=== PATIENT | male | born 1940 | race Hispanic/Latino ===

== ENCOUNTER 2022-05-01 08:27 | Outpatient (CLI) | payer MEDICAID, SELFPAY ==
--- NOTE | ~2022-05-01 | NM_ITS ---
EXAMINATION: NM marcelo stress w perfusion DATE: 05/01/2022 12:17 INDICATION: Dyspnea on exertion. TECHNIQUE: Rest images were obtained following intravenous administration of 10.2 mCi Tc99m tetrofosm in (Myoview). The patient was infused intravenously with Lexiscan (regadenoson). Then, 31.2 mCi Tc99m tetrofosmin (Myoview) was administered intravenously, and stress images were obtained. Data was robin nstructed into short axis and horizontal and vertical long axis SPECT images. Gated SPECT images were also obtained. COMPARISON: None. FINDINGS: There is no definite reversible or fixed perfusion abnormality to suggest ischemia or infar ction. There is no segmental wall motion abnormality. Left ventricular ejection fraction measures > 70%. IMPRESSION: 1. No definite ischemia or infarct. 2. Normal left ventricular ejection fraction measuring >70%. Reviewed, dictated and finalized at location A.
--- NOTE | 2022-05-01 08:50 | ECHO_ITS ---
Patient Info Name: Bunny Willis Age: 82 years : 1940 Gender: Male Ht: 60 in Wt: 137 lbs BSA: 1.64 m2 HR: 68 bpm BP: 184 / 101 mmHg Technical Quality: Good Exam Date: 05/01/2022 9:22 AM Exam Location: [facility] Pulmonary Patient Status: Outpatient Admit Date: 05/01/2022 Staff Ordering Physician: Yordy Burton DO Medical Research Tech: Steven Andres RDCS Attending Provider: Yordy Burton DO Referring Physician: Micheal DANIELLE; Exam Type: CA echo doppler color flow Study Info Indications R06.00 - Dyspnea, unspecified Complete two-dimensional, color flow and Doppler transthoracic echocardiogram is performed. Summary 1. Complete two-dimensional, color flow and Doppler transthoracic echocardiogram is performed. 2. Left ventricular chamber dimension is normal. 3. Left ventricular systolic function is normal, estimated at 60-65%. 4. The left ventricular diastolic function is grade I diastolic dysfunction. 5. E/e' 12 is mildly elevated. Left Ventricle E/e' 12 is mildly elevated. Left ventricular chamber dimension is normal. Left ventricular systolic function is normal, estimated at 60-65%. The left ventricular diastolic function is grade I diastolic dysfunction. Right Ventricle Right ventricular systolic function is normal and with normal TAPSE 1.7 cm. Right ventricular chamber dimension is normal. Left Atria Left atrial chamber dimension is normal. Right Atria Right atrial chamber dimension is normal. Aortic Valve The aortic valve is trileaflet. There is no aortic valve stenosis. There is no aortic valve regurgitation. Pulmonic Valve There is no pulmonic regurgitation. Mitral Valve There is no mitral valve stenosis. There is no mitral valve regurgitation. Tricuspid Valve There is no tricuspid valve regurgitation. Pericardium/Pleural There is no pericardial effusion. Inferior Vena Cava Normal inferior vena cava with >50% collapse upon inspiration consistent with normal right atrial pressure, 5 mmHg. Aorta The aortic root size at the sinus of Valsalva is normal. Left Ventricular Outflow Tract Name Value Normal LVOT 2D LVOT Diameter 2.0 cm LVOT Doppler LVOT Peak Gradient 2 mmHg LVOT Mean Gradient 1 mmHg LVOT VTI 15 cm LVOT VTI/AV VTI Ratio 0.8 LVOT Stroke Volume 49 ml LVOT CO 3.1 l/min LVOT CI 1.9 l/min/m2 Mitral Valve Name Value Normal MV Doppler MV Peak Gradient 4 mmHg MV Mean Gradient 1 mmHg MV Decel Cotton 244 cm/s2 MV PHT 70 ms MV Area (PHT) 3.1
--- NOTE | 2022-05-01 09:10 | EST_ITS ---
Patient Info Name: Bunny Willis Age: 82 years : 1940 Gender: Male Ht: 63 in Wt: 137 lbs BSA: 1.67 m2 Exam Date: 05/01/2022 10:59 AM Exam Location: [facility] Stress Patient Status: Outpatient Admit Date: 05/01/2022 Staff Ordering Physician: Yordy Burton DO Attending Provider: Yordy Burton DO Exercise Technologist: Sowmya Huntley RDCS Exercise Physician: Yordy Burton DO Exam Type: CA stress marcelo w NM Study Info Indications R06.00 - Dyspnea, unspecified A regadenoson stress test was performed. Summary 1. 1. Negative Lexiscan stress test for ischemic ST changes by ECG criteria. 2. 2. Baseline hypertension. 3. 3. Nuclear scan to follow and will be reported separately. Please correlate with it. 4. 4. Patient informed of the above results. Protocol: Lexiscan Stress ECG Details Stage: REST Duration (min): 1 min : 38 sec HR (bpm): 59 SBP (mmHg): 181 DBP (mmHg): 93 Stage: REST Duration (min): 6 min : 52 sec HR (bpm): 60 SBP (mmHg): 181 DBP (mmHg): 93 Stage: STAGE 1 Duration (min): 0 min : 59 sec HR (bpm): 81 SBP (mmHg): 191 DBP (mmHg): 83 Stage: RECOVERY Duration (min): 1 min : 0 sec HR (bpm): 92 SBP (mmHg): 147 DBP (mmHg): 84 Stage: RECOVERY Duration (min): 2 min : 0 sec HR (bpm): 92 SBP (mmHg): 147 DBP (mmHg): 84 Stage: RECOVERY Duration (min): 3 min : 0 sec HR (bpm): 88 SBP (mmHg): 156 DBP (mmHg): 84 Stage: RECOVERY Duration (min): 3 min : 2 sec HR (bpm): 88 SBP (mmHg): 156 DBP (mmHg): 84 Rest HR: 60 bpm Peak HR: 93 bpm Rest Sys BP: 181 mmHg Peak Sys BP: 191 mmHg Max Pred HR: 138 bpm % Max Pred HR: 67 % Target HR: 117 bpm Max RPP: 17,763 bpm*mmHg Termination Reason: Completed protocol Total Time: 1 min : 0 sec Rest Bahena BP: 93 mmHg Peak [place]hena BP: 83 mmHg Total Dose: 0.4 mg Resting ECG Sinus rhythm. Stress ECG No ST changes. Arrhythmias None. Report Signatures
== END 2022-05-01 08:28 | disposition home or self-care (01) ==
LOC: ANHCARD 08:29
PROVIDERS: PCP Physician Assistant; Visit Provider Internal Medicine Cardiovascular Disease
DX: R06.00 Dyspnea, unspecified (principal)
CPT/HCPCS: 78452; 93017; 93306; A9502

== ENCOUNTER 2022-10-02 07:58 | Outpatient (CLI) | payer MEDICAID, SELFPAY ==
[2022-10-02 08:55] LABS: Alanine Aminotransferase 41 U/L (6-50); Albumin Level 4.4 g/dL (3.5-5.1); Alkaline Phosphatase 119 U/L (38-126); Anion Gap 5 mmol/L (8-16); Aspartate Amino Transferase 44 U/L (17-59); Bilirubin,Total 0.6 mg/dL (0.2-1.3); Blood Urea Nitrogen 13 mg/dL (9-20); Calcium 8.9 mg/dL (8.4-10.2); Carbon Dioxide 33 mmol/L (22-30); Chloride 97 mmol/L (98-107); Cholesterol 128 mg/dL (0-200); Estimated Glomerular Filt Rate 42; Glucose 117 mg/dL (65-110); HDL Direct 25 mg/dL; Magnesium 2.3 mg/dL (1.6-2.3); Potassium 4.4 mmol/L (3.4-5.0); Sodium 135 mmol/L (137-145); Triglycerides 220 mg/dL (<150)
[2022-10-02 09:06] LABS: LDL Cholesterol Direct 62 mg/dL
== END 2022-10-02 07:59 | disposition home or self-care (01) ==
LOC: ANHLAB 07:59
PROVIDERS: PCP Physician Assistant; Visit Provider Internal Medicine Cardiovascular Disease
DX: I10 Essential (primary) hypertension (principal)
CPT/HCPCS: 36415; 80053; 80061; 83735

== ENCOUNTER 2023-04-12 08:40 | Emergency (ER) | payer MEDICAID, SELFPAY ==
[2023-04-12 08:56] VITALS: BP 171/82; PULSE 80; RESP 20; TEMP 37.2; O2SAT 98
--- NOTE | 2023-04-12 09:12 | ED.ABDPAIN ---
HPI - Abdominal Pain General Chief Complaint: Abdominal Pain Stated Complaint: stomach pain and chest pain Time Seen by Provider: 04/12/23 09:13 Source: patient, family and diplomatic interpreter Mode of arrival: ambulatory Limitations: no limitations History of Present Illness HPI narrative: 82-year-old male with history of hypertension, GERD presents with complaint epigastric abdominal pain for 8 days. Reports that started mild and is getting progressively worse. Reports that entire abdomen is now bloated. Denies nausea vomiting diarrhea. Last bowel movement was this morning and states that was normal. Denies blood to stool and urine. No urinary symptoms. States normal appetite. Has felt fatigued for the past 4 days. Denies chest pain and shortness of breath. Patient grimacing with pain with movements. Patient is Swedish-speaking, here with his daughter. All systems reviewed and negative except as noted above. Related Data Home Medications Medication Instructions Recorded Confirmed amlodipine 10 mg tablet 10 mg PO DAILY 03/29/22 04/12/23 ferrous sulfate 325 mg (65 mg 325 mg PO DAILY 03/29/22 04/12/23 iron) tablet (FeroSul) Allergies Allergy/AdvReac Type Severity Reaction Status Date / Time No Known Allergies Allergy Verified 04/12/23 10:03 Review of Systems Review of Systems: CONSTITUTIONAL: Denies fever, chills, or sweats. reports fatigue. EYES: Denies visual changes, redness, or discharge. ENT: Denies rhinorrhea, congestion, sore throat, or otalgia. CARDIOVASCULAR: Denies chest pain, palpitations, or edema. RESPIRATORY: Denies cough or dyspnea. GASTROINTESTINAL: Reports abdominal pain, bloating. Denies nausea, vomiting, or diarrhea. GENITOURINARY: Denies dysuria or hematuria. SKIN: Denies rash or itching. MUSCULOSKELETAL: Denies back pain, joint pain, or myalgia. NEUROLOGIC: Denies headache, numbness, or weakness. PSYCHIATRIC: Denies anxiety or depression. All other systems reviewed are negative, except as documented in HPI. [facility] Past Medical History Medical History Anemia GERD (gastroesophageal reflux disease) Hypertension Social History Social History Smoking status: Never smoker Alcohol intake: never Substance use: never Comments At time of signature, agree with nursing past medical, surgical, social and family history. There is no relevant family history pertinent to the presenting complaint. Exam Narrative: GENERAL: This is a well-nourished, well-developed patient, in no apparent distress. HEAD: normocephalic, atraumatic. EYES: PERRL. Sclera clear/white. Vision is grossly intact. EARS: External ears normal NOSE: External nose normal NECK: Neck supple, non-tender without lymphadenopathy, masses or thyromegaly. CARDIOVASCULAR: Regular rate and rhythm without murmurs, gallops, or rubs. RESPIRATORY: Clear to auscultation. Breath sounds equal bilaterally. No wheezes, rales, or rhonchi. GASTROINTESTINAL: Abdomen soft, Generalized tenderness, worse the epigastric region, nondistended. Bowel sounds are active. No hepato-splenomegaly, or palpable masses. No guarding. SKIN: warm, Dry, intact with no suspicious lesions or rash, good texture and turgor. NEURO: awake, alert, and oriented to person, place and time. There were no obvious focal neurologic abnormalities. EXTREMITIES: No joint tenderness, effusion, or edema noted. Course Course Level of Care: Express Care Visit Vital Signs Vital signs: Vital Signs Temperature 37.2 C 04/12/23 08:56 Pulse Rate 80 04/12/23 08:56 Respiratory Rate 20 04/12/23 08:56 Blood Pressure 171/82 H 04/12/23 08:56 Pulse Oximetry 98 04/12/23 08:56 Oxygen Delivery Room Air 04/12/23 08:56 Temperature 37.2 C 04/12/23 08:56 Pulse Rate 80 04/12/23 08:56 Respiratory Rate 20 04/12/23 08:56 Blood Press
--- NOTE | 2023-04-12 12:45 | ECG_ITS ---
Measurements Intervals [place] Rate: 72 P: 44 NM: 194 QRS: -13 QRSD: 95 T: -4 QT: 364 QTc: 399 Interpretive Statements SINUS RHYTHM BORDERLINE T WAVE ABNORMALITY- INFERIOR LEADS BASELINE ARTIFACT- I, III, AVL BORDERLINE ECG NO PREVIOUS ECG AVAILABLE FOR COMPARISON Electronically Signed On 04-12-2023 13:16:18 CDT by Yordy Burton D.O.
== END 2023-04-12 09:40 | disposition short-term general hospital (02) ==
PROVIDERS: Emergency Provider Nurse Practitioner Family; PCP Physician Assistant
DX: R10.13 Epigastric pain (principal); R10.84 Generalized abdominal pain; D64.9 Anemia, unspecified; I10 Essential (primary) hypertension; K21.9 Gastro-esophageal reflux disease without esophagitis
CPT/HCPCS: 93005; 99213; G0463

== ENCOUNTER 2023-04-12 10:03 | Observation (INO) | payer MEDICAID, SELFPAY ==
[2023-04-12] VITALS (16 sets, daily range): BP systolic 90–173; BP diastolic 47–90; PULSE 67–85; RESP 12–27; TEMP 36.1–37.1; O2SAT 95–100; BMI 25.9
--- NOTE | ~2023-04-12 | CT_ITS ---
EXAMINATION: CT abdomen pelvis w con INDICATION: Abdominal pain TECHNIQUE: Computed tomographic images of the abdomen and pelvis were obtained after the administrati on of 100 cc of Omnipaque 350 intravenous contrast. The dose-length product (DLP) was 351.41 mGy-cm. Automated exposure control and iterative reconstruction technique were employed. COMPARISON: None available FINDINGS: Respiratory motion artifact slightly limits the examination. Minimal dependent atelectasis is present in the lung bases. The heart size is normal. There is a moderate-sized hiatal hernia. Ther e is circumferential wall thickening of the visualized distal esophagus. The spleen, pancreas, and ad renal glands are normal. Cysts of the kidneys measure up to 3.7 cm on the left. No pathologically enl arged abdominal or pelvic lymph nodes are identified. No free intraperitoneal gas or evidence of risa l obstruction. There is calcified atherosclerosis of the aorta and many of the other arteries. There are bilateral inguinal hernias containing fat. There is moderate lumbar spondylosis. The appendix is normal. IMPRESSION: 1. Moderate-sized sliding hiatal hernia. Circumferential wall thickening of the visualized distal eso phagus may reflect esophagitis. Reviewed, dictated and finalized at location B. IMPRESSION: 1. Moderate-sized sliding hiatal hernia. Circumferential wall thickening of the visualized distal esophagus may reflect esophagitis.
--- NOTE | ~2023-04-12 | CT_ITS ---
EXAMINATION: CT diagnostic chest w con DATE: 04/12/2023 17:31 INDICATION: Esophageal ulcer suspicious for cancer TECHNIQUE: Computed tomography (CT) of the chest was performed without intravenous contrast. Addition al 3D reconstructions utilizing coronal maximum intensity projection (MIP) were performed. Automated exposure control and iterative reconstruction technique were employed. The dose-length product was 26 7.86 mGy-cm. COMPARISON: None FINDINGS: Respiratory motion the lungs which mildly limits evaluation of fine pulmonary parenchymal detail. Mil d right apical pleural-parenchymal scarring. Mild discoid atelectasis in the posterior right lower lo be. Additional compressive atelectasis in the bilateral lower lobes along side a moderate-sized slidi ng-type hiatal hernia. Small pneumatocele in the right middle lobe. Small bilateral intrafissural lym ph nodes the largest on the right measuring 5 mm. No other suspicious pulmonary nodules, pneumonia, p ulmonary edema or pleural effusion. Heart size is normal. No pericardial effusion. There is prominent wall thickening in the distal esophagus with small amount of adjacent inflammatory stranding which c ould be due to esophagitis or malignancy. The adjacent stranding is likely related to the reported ul ceration however there is no pneumomediastinum to suggest full-thickness perforation there are few sc attered normal-sized mediastinal lymph nodes. Small region of cortical scarring at the lower pole of the right kidney. 2.9 cm left renal cyst with a couple additional subcentimeter left renal cyst. Mild thoracic dextrocurvature with mild spondylosis. IMPRESSION: 1. Prominent wall thickening at the distal esophagus with some surrounding periesophageal stranding c onsistent with reported history of ulceration which could be related to either gastritis or malignanc y. No evident metastatic disease. 2. Moderate-sized sliding-type hiatal hernia. Reviewed, dictated and finalized at location A. IMPRESSION: 1. Prominent wall thickening at the distal esophagus with some surrounding nolan esophageal stranding consistent with reported history of ulceration which could be related to either gastritis or malignancy. No evident metastatic disease. 2. Moderate-sized sliding-type hiatal hernia.
[2023-04-12] MEDS: ONDANSETRON INJ 4 MG/2 ML VIAL IV PUSH (11:15)
[2023-04-12] MEDS: FAMOTIDINE 20 MG/2 ML VIAL IV PUSH (11:15)
[2023-04-12 11:35] LABS: Appearance Urine Clear (Clear); Bilirubin Urine Negative (Negative); Blood Urine Negative (Negative); Color Urine Yellow (Yellow); Glucose Urine UA Negative (Negative); Ketones Urine Negative (Negative); Leukocyte Esterase Ur Negative LEU/UL (Negative); Nitrate Urine Negative (Negative); Protein Urine Negative (Negative); Specific Grav Ur 1.018 (1.001-1.035)
[2023-04-12 11:42] LABS: Add Urine Microscopic? NO
[2023-04-12 11:50] LABS: Basophils Percent Auto 0.3 % (0.2-1.2); Eosinophils Absolute Auto 0.1 K/mm3 (0-0.3); Eosinophils Percent Auto 0.9 % (0-4.4); Hematocrit 21.7 % (42.0-52.0); Immature Granulocyte Absolute 0.07 K/mm3 (0.00-0.031); Immature Granulocyte Percent A 0.5 % (0-0.5); Lymphocytes Percent Auto 14.9 % (18.3-44.2); Mean Corpuscular HGB Conc 32.3 g/dl (32-36); Mean Corpuscular Hemoglobin 30.4 pg (26-34); Mean Corpuscular Volume 94.3 fl (80-100); Mean Platelet Volume 8.9 fl (7.4-10.4); Monocytes Absolute Auto 1.2 K/mm3 (0.1-0.6); Monocytes Percent Auto 9.5 % (2.6-8.5); Neutrophils Absolute Auto 9.4 K/mm3 (1.3-6.7); Neutrophils Percent Auto 73.9 % (45.5-73.1); Platelet Count Result 319 k/mm3 (150-375); Red Cell Distribution Width 14.4 % (11.5-14.5); White Blood Count 12.8 K/mm3 (4.5-10.0)
[2023-04-12 12:19] LABS: Alanine Aminotransferase 20 U/L (6-50); Albumin Level 3.3 g/dL (3.5-5.1); Alkaline Phosphatase 85 U/L (38-126); Anion Gap 7 mmol/L (8-16); Aspartate Amino Transferase 27 U/L (17-59); Bilirubin,Total 0.3 mg/dL (0.2-1.3); Blood Urea Nitrogen 16 mg/dL (9-20); Calcium 7.9 mg/dL (8.4-10.2); Carbon Dioxide 23 mmol/L (22-30); Chloride 105 mmol/L (98-107); Estimated CRCL calculation 54 ml/min; Estimated Glomerular Filt Rate > 60; Glucose 115 mg/dL (65-110); Lipase 55 U/L (23-300); Potassium 4.1 mmol/L (3.4-5.0); Sodium 135 mmol/L (137-145)
--- NOTE | 2023-04-12 13:07 | ED.ABDPAIN ---
HPI - Abdominal Pain General Chief Complaint: Abdominal Pain Stated Complaint: abdominal pain and bloating Time Seen by Provider: 04/12/23 10:44 History of Present Illness HPI narrative: 82-year-old male presents today with complaints of 8 days of epigastric pain. Patient is primarily Vietnamese-speaking stock trader used for assessment. Patient endorses belching and dark stools. Patient states has a history of high blood pressure and anemia. Per the daughter he was supposed to be taking some kind of medication for the anemia but he ran out. No previous labs available. Patient denies any shortness of breath, dizziness, lightheadedness but does endorse some chest pain with the abdominal pain when it occurs. Related Data Allergies Allergy/AdvReac Type Severity Reaction Status Date / Time No Known Allergies Allergy Verified 04/12/23 15:39 Review of Systems Review of Systems: All systems reviewed & are unremarkable except as noted in HPI and below PMFSH Past Medical History Medical History Anemia GERD (gastroesophageal reflux disease) Hypertension Social History Social History Smoking status: Never smoker Alcohol intake: never Substance use: never Lack of Transportation: No Lack of Food: Never True Current Housing: I Have Housing Concerned About Future Housing: No Difficulty Paying Gas/Electric Bills: No Difficulty Paying for Meds: No Currently Unemployed: No Education: Grade School Difficulty w/ Childcare or Family Care: No Spiritual care concerns: No Exam Const: General: cooperative, healthy appearing, comfortable, no acute distress and well developed Orientation/consciousness: patient oriented x3 HENMT: Head: normal to inspection Eyes: General: appearance normal, both eyes and all related structures Resp: Effort & Inspection: normal respiratory effort and able to speak in complete sentences Auscultation: clear to auscultation bilaterally Cardio: Rate: regular rate Rhythm: regular rhythm Heart sounds: S1 normal heart sound present and S2 normal heart sound present GI: Inspection: normal to inspection GI Palp: Yes abdominal tenderness (Epigastric), Yes Soft to palpation and Yes No hepatosplenomegaly present Percussion: Yes normal to percussion Rectal Exam: heme positive stool Neuro: General: patient oriented x3 Course Course Emergency Course: Patient doing well during his course. Mortgage Or Loan Underwriter used to explain low hemoglobin. Used to explain need for blood transfusion. Patient and family agreed for blood transfusion. They are aware patient to be admitted for further evaluation. All are in agreement at this time. Consultations Consultation #1: Dr. Olmedo called for consult. Except consult aware of hemoglobin of 7 and guaiac positive stool. Date: 04/12/23 Time: 13:50 Vital Signs Vital signs: Vital Signs Temperature 97.4 F L 04/12/23 10:03 Pulse Rate 79 04/12/23 10:03 Respiratory Rate 14 04/12/23 10:03 Blood Pressure 172/77 H 04/12/23 10:03 Pulse Oximetry 99 04/12/23 10:03 Oxygen Delivery Room Air 04/12/23 10:03 Temperature 98.5 F 04/12/23 16:58 Pulse Rate 77 04/12/23 18:00 Respiratory Rate 12 04/12/23 16:58 Blood Pressure 156/80 H 04/12/23 16:58 Pulse Oximetry 99 04/12/23 16:58 Oxygen Delivery Room Air 04/12/23 16:38 MDM - Abdominal Pain MDM Narrative Medical decision making narrative: 82-year-old male HPI as noted. Differentials as below. Work-up to include CBC, CMP, EKG, troponin, CT of the abdomen. CBC with findings of a hemoglobin of 7.0, white count 12.8, CMP without concerning findings but a sodium of 135, glucose 115 calcium 7.9. Urine without signs of infection. EKG shows sinus rhythm. Troponin negative. stool guaiac positive. GI consulted. Hospitalist consulted. Will transfuse 1 unit of blood
[2023-04-12 13:19] LABS: INR 1.1; Prothrombin Time 14.3 Seconds (11.1-14.7)
--- NOTE | 2023-04-12 13:24 | ECG_ITS ---
Measurements Intervals [place] Rate: 81 P: 44 WV: 188 QRS: 1 QRSD: 86 T: 4 QT: 362 QTc: 423 Interpretive Statements SINUS RHYTHM BORDERLINE T WAVE ABNORMALITY- INFERIOR LEADS BASELINE ARTIFACT- III, AVL, AVF BORDERLINE ECG COMPARED TO ECG 04/12/2023 09:44:55 NO SIGNIFICANT CHANGES Electronically Signed On 04-12-2023 13:52:08 CDT by Yordy Burton D.O.
[2023-04-12 14:13] LABS: Troponin I < 0.012 ng/mL (0.000-0.034)
[2023-04-12] MEDS: SODIUM CHLORIDE 0.9% IV 250 ML 30 ML IV CONT (15:10)
[2023-04-12] MEDS: PANTOPRAZOLE SODIUM IV 40 MG VIAL 80 MG IV PUSH (15:10)
[2023-04-12] MEDS: TUBING, BLOOD PLUM PUMP TUBING 1 EACH XX (15:12)
[2023-04-12] MEDS: LACTATED RINGERS 1,000 ML 50 ML IV CONT (15:12)
--- NOTE | 2023-04-12 15:41 | PM.IMHP ---
H&P: HPI History of Present Illness Date/Time: 04/12/23 14:30 Chief Complaint: abdominal pain Narrative: This is an 82-year-old male patient with past history of hypertension, GERD and anemia who was admitted for significant anemia with Hemoccult-positive stool and imaging findings esophagitis. Patient found to have hemoglobin of 7.0 unknown prior results. Patient reports that he has had epigastric pain radiating up into his chest a comes off and on but has been worse for the last 8 days. Patient is supposed to be taking iron but has not been taking this. Family is present as patient only speaks Serbian in defers to family even when aerial photogrammetrist is used. Gastroenterology was consulted by the emergency department provider and patient was taken for EGD. EGD shows Barretts esophagus and large ulceration with stigmata of recent bleeding concerning for Malignancy. Patient denies alcohol abuse or smoking. Patient received 80 mg IV Protonix in the emergency department and is now on Protonix 40 mg IV twice daily. Review of Systems Review of Systems: All systems reviewed & are unremarkable except as noted in HPI and below ROS unobtainable: Yes other [facility] Past Medical History Medical History Anemia GERD (gastroesophageal reflux disease) Hypertension Social History Social History Smoking status: Never smoker Alcohol intake: never Substance use: never Lack of Transportation: No Lack of Food: Never True Current Housing: I Have Housing Concerned About Future Housing: No Difficulty Paying Gas/Electric Bills: No Difficulty Paying for Meds: No Currently Unemployed: No Education: Grade School Difficulty w/ Childcare or Family Care: No Spiritual care concerns: No Meds Home Medications and Allergies Home Medications Medication Instructions Recorded Confirmed Type carvedilol 25 mg tablet 25 mg PO Q12H #180 tabs 09/27/22 04/12/23 Rx Allergies Allergy/AdvReac Type Severity Reaction Status Date / Time No Known Allergies Allergy Verified 04/12/23 15:39 Vital Signs Vital Signs - 24 hr 04/12/23 10:03 04/12/23 13:31 04/12/23 15:02 Temperature 36.3 C L 36.9 C Pulse Rate 79 82 80 Respiratory Rate 14 16 26 H Blood Pressure 172/77 H 173/90 H 156/88 H Pulse Oximetry 99 97 96 Oxygen Delivery Room Air 04/12/23 15:13 04/12/23 15:21 Temperature 37.1 C Pulse Rate 80 80 Respiratory Rate 24 H 24 H Blood Pressure 156/88 H 154/78 H Pulse Oximetry 96 95 Oxygen Delivery Exam Narrative: GENERAL: Generally well appearing, alert and oriented, in no apparent distress. He primarily defers to family to answer for him even when aerial photogrammetrist is used. HEENT: Pupils are equally round and briskly reactive to light. Extraocular muscles are intact. Oral mucous membranes are moist without lesions. NECK: The patient has no noted JVD. No adenopathy is appreciated. CHEST/LUNGS: Lungs are clear bilaterally without rhonchi, rales, or wheezes. There is no subcutaneous air appreciated. There is no tenderness to the chest wall. HEART: The patient has a regular rate and rhythm. No murmurs, rubs, or gallops are appreciated. Distal pulses are 2+. ABDOMEN: The patient's abdomen is soft, Nondistended, epigastric tenderness is noted. Bowel sounds present. No peritoneal signs. EXTREMITIES: The patient has no peripheral edema. There is no focal long bone tenderness or deformity. SKIN: The patient's skin is warm and dry, without rashes or lesions. PSYCHIATRIC: The patient has normal mental status and has an appropriate affect. NEUROLOGIC: There are no gross deficits to the cranial nerves. Patient ambulates with steady gait. H&P: Results Labs Labs: Short CBC 04/12/23 Range/Units 11:44 WBC 12.8 H (4.5-10.0) K/mm3 Hgb 7.0 L (14.0-18.0) g/dL Hct 21.7 L (42.0-52.0) % Plt Count 319 (1
--- NOTE | 2023-04-12 15:43 | WPDANESEPPF ---
Anes - Initial Pre Proc Eval Procedure: Operation Date: 04/12/23 15:45 Proposed Procedures p Esophagogastroduodenoscopy EGD - Jalen Olmedo MD Date/Time: 04/12/23 15:43 Surgeon: Darren Nava MD Pre Op Diagnosis: Rectal Bleeding/Anemia Patient Data Age: 82 Gender: M Height: 1.57 m Weight: 54 kg Last Vital Signs Temp 37.1 C 04/12/23 15:21 Pulse 80 04/12/23 15:21 Resp 24 H 04/12/23 15:21 BP 154/78 H 04/12/23 15:21 Pulse Ox 95 04/12/23 15:21 O2 Del Method Room Air 04/12/23 10:03 Allergies Allergy/AdvReac Type Severity Reaction Status Date / Time No Known Allergies Allergy Verified 04/12/23 15:39 Home Medications Medication Instructions Recorded Confirmed Type carvedilol 25 mg tablet 25 mg PO Q12H #180 tabs 09/27/22 04/12/23 Rx Laboratory Tests 04/12/23 04/12/23 04/12/23 11:05 11:44 11:55 WBC 12.8 H K/mm3 (4.5-10.0) RBC 2.30 L M/mm3 (4.6-6.20) Hgb 7.0 L g/dL (14.0-18.0) Hct 21.7 L % (42.0-52.0) MCV 94.3 fl (80-100) MCH 30.4 pg (26-34) MCHC 32.3 g/dl (32-36) RDW 14.4 % (11.5-14.5) Plt Count 319 k/mm3 (150-375) MPV 8.9 fl (7.4-10.4) Immature Gran % (Auto) 0.5 % (0-0.5) Neut % (Auto) 73.9 H % (45.5-73.1) Lymph % (Auto) 14.9 L % (18.3-44.2) [place] % (Auto) 9.5 H % (2.6-8.5) Eos % (Auto) 0.9 % (0-4.4) Baso % (Auto) 0.3 % (0.2-1.2) Lymph # (Auto) 1.90 K/mm3 (0.9-3.2) [place] # (Auto) 1.2 H K/mm3 (0.1-0.6) Eos # (Auto) 0.1 K/mm3 (0-0.3) Baso # (Auto) 0.0 K/mm3 (0.0-0.1) Abs Immat Gran (auto) 0.07 H K/mm3 (0.00-0.031) Absolute Neuts (auto) 9.4 H K/mm3 (1.3-6.7) Absolute Nucleated RBC 0.0 K/mm3 (0.0-0.012) Nucleated RBC % 0.0 % (0.0-0.2) PT 14.3 Seconds (11.1-14.7) INR 1.1 Sodium 135 L mmol/L (137-145) Potassium 4.1 mmol/L (3.4-5.0) Chloride 105 mmol/L (98-107) Carbon Dioxide 23 mmol/L (22-30) Anion Gap 7 L mmol/L (8-16) BUN 16 mg/dL (9-20) Creatinine 0.70 mg/dL (0.7-1.3) Estim Creat Clear Calc 54 ml/min Estimated GFR > 60 (59 - ) Glucose 115 H mg/dL (65-110) Calcium 7.9 L mg/dL (8.4-10.2) Total Bilirubin 0.3 mg/dL (0.2-1.3) AST 27 U/L (17-59) ALT 20 U/L (6-50) Alkaline Phosphatase 85 U/L (38-126) Troponin I Total Protein 6.0 L g/dL (6.3-8.2) Albumin 3.3 L g/dL (3.5-5.1) Lipase 55 U/L (23-300) Urine Color Yellow (Yellow) Urine Appearance Clear (Clear) Urine pH 6.0 (5.0-9.0) Ur Specific [place] 1.018 (1.001-1.035) Urine Protein Negative mg/dL (Negative) Urine Glucose (UA) Negative mg/dL (Negative) Urine Ketones Negative mg/dL (Negative) Ur Blood (Man) Negative (Negative) Urine Nitrate Negative (Negative) Urine Bilirubin Negative (Negative) Urine Urobilinogen 1.0 mg/dL (<2.0) Leukocyte Esterase Rfl Negative HEIDI/UL (Negative) Blood Type Antibody Screen Crossmatch 04/12/23 13:45 WBC RBC Hgb Hct MCV MCH MCHC RDW Plt Count MPV Immature Gran % (Auto) Neut % (Auto) Lymph % (Auto) [place] % (Auto) Eos % (Auto) Baso % (Auto) Lymph # (Auto) [place] # (Auto) Eos # (Auto) Baso # (Auto) Abs Immat Gran (auto) Absolute Neuts (auto) Absolute Nucleated RBC Nucleated RBC % PT INR Sodium Potassium
[2023-04-12] MEDS: LACTATED RINGERS 1,000 ML 150 ML IV CONT (15:46)
--- NOTE | 2023-04-12 16:20 | WPDGICN ---
Assessment and Plan Assessment and plan (1) Melena: Code(s): K92.1 - Melena Status: Acute Assessment and Plan: Patient with black melenic stools confirmed to be heme-positive along with a low blood count. Patient also has mid upper abdominal burning pain. Suspicious for upper GI blood loss. Plan to transfuse to a stable hemoglobin. Cover patient with pantoprazole. An EGD will be performed. (2) Abdominal pain: Code(s): R10.9 - Unspecified abdominal pain Status: Acute (3) Anemia due to blood loss: Code(s): D50.0 - Iron deficiency anemia secondary to blood loss (chronic) Status: Acute GI Consult Note Consult date/time: 04/12/23 16:20 Reason for consult: Melena and blood-loss anemia HPI: Bunny Willis is a 82 year old male present to the ER today with complaints of abdominal pain. Patient speaks Mauritian only. History is obtained in the assistance of his son. Patient is noticed upper abdominal burning pain has been present for several days. Upon presenting to the emergency room patient was noted to have black melenic stools. This was confirmed to be Hemoccult positive. Laboratory testing reveals a decline in hemoglobin. Patient is not been on any specific treatment for this. CT scan in the emergency room suggests some thickening to the esophagus. Family history noncontributory. Review of Systems Review of Systems: Review of systems noncontributory. [facility] Past Medical History Medical History Anemia GERD (gastroesophageal reflux disease) Hypertension Social History Social History Smoking status: Never smoker Alcohol intake: never Substance use: never Meds Home Medications and Allergies Home Medications Medication Instructions Recorded Confirmed Type carvedilol 25 mg tablet 25 mg PO Q12H #180 tabs 09/27/22 04/12/23 Rx Allergies Allergy/AdvReac Type Severity Reaction Status Date / Time No Known Allergies Allergy Verified 04/12/23 15:39 Vital Signs Vital Signs - 24 hr 04/12/23 10:03 04/12/23 13:31 04/12/23 15:02 Temperature 97.4 F L 98.4 F Pulse Rate 79 82 80 Respiratory Rate 14 16 26 H Blood Pressure 172/77 H 173/90 H 156/88 H Pulse Oximetry 99 97 96 Oxygen Delivery Room Air 04/12/23 15:13 04/12/23 15:21 04/12/23 15:40 Temperature 98.7 F 97.6 F Pulse Rate 80 80 76 Respiratory Rate 24 H 24 H 20 Blood Pressure 156/88 H 154/78 H 165/70 H Pulse Oximetry 96 95 97 Oxygen Delivery Room Air Exam Narrative: Physical exam reveals patient to be alert. Vital signs stable. HEENT exam is unremarkable. Patient is anicteric. Lungs are clear to auscultation and percussion. Heart is without murmur. Abdomen bowel sounds are present soft nontender with no organomegaly. Stools reported be Hemoccult positive. Results Labs 04/12/23 11:44 04/12/23 11:55 Labs: Short CBC 04/12/23 Range/Units 11:44 WBC 12.8 H (4.5-10.0) K/mm3 Hgb 7.0 L (14.0-18.0) g/dL Hct 21.7 L (42.0-52.0) % Plt Count 319 (150-375) k/mm3 BMP 04/12/23 11:55 Sodium 135 L Potassium 4.1 Chloride 105 Carbon Dioxide 23 BUN 16 Creatinine 0.70 Glucose 115 H Calcium 7.9 L Cardiac Enzymes 04/12/23 Range/Units 13:45 Troponin I < 0.012 (0.000-0.034) ng/mL Liver Function 04/12/23 Range/Units 11:55 Total Bilirubin 0.3 (0.2-1.3) mg/dL AST 27 (17-59) U/L ALT 20 (6-50) U/L Alkaline Phosphatase 85 (38-126) U/L Albumin 3.3 L (3.5-5.1) g/dL Urine 04/12/23 Range/Units 11:05 Urine Color Yellow (Yellow) Urine Appearance Clear (Clear) Urine pH 6.0 (5.0-9.0) Ur Specific [place] 1.018 (1.001-1.035) Urine Protein Negative (Negative) mg/dL Urine Glucose (UA) Negative (Negative) mg/dL [facility] Consult Billing
--- NOTE | 2023-04-12 19:22 | ADMGEN ---
This patient, Bunny Willis, was admitted to IMU Room 207-01 at 1645. Patient/family oriented to hospital policies and general routines including ID bracelet, bed and alarms, visiting hours, pain management, procedures, bathroom and other care routines, personal items, smoking policy, room service/diet, and visiting hours. Information on how to activate the Rapid Response Team has been discussed. Patient/Family are encouraged to report perceived risks to care and to ask questions if they do not understand what they are told or what they should do.
[2023-04-12] MEDS: PANTOPRAZOLE SODIUM IV 40 MG VIAL IV PUSH (20:28)
[2023-04-12 22:08] LABS: Hematocrit 26.3 % (42.0-52.0); Hemoglobin 8.7 g/dL (14.0-18.0); Mean Corpuscular HGB Conc 33.1 g/dl (32-36); Mean Corpuscular Hemoglobin 30.7 pg (26-34); Mean Corpuscular Volume 92.9 fl (80-100); Mean Platelet Volume 9.1 fl (7.4-10.4); Platelet Count Result 299 k/mm3 (150-375); Red Blood Count 2.83 M/mm3 (4.6-6.20); Red Cell Distribution Width 14.3 % (11.5-14.5); White Blood Count 11.8 K/mm3 (4.5-10.0)
[2023-04-13] VITALS (16 sets, daily range): BP systolic 109–154; BP diastolic 49–70; PULSE 69–90; RESP 14–24; TEMP 36.1–37.2; O2SAT 91–98
[2023-04-13] MEDS: carvediloL 25 MG TABLET PO ×3 (00:52→21:04)
[2023-04-13 04:23] LABS: Basophils Percent Auto 0.2 % (0.2-1.2); Eosinophils Absolute Auto 0.1 K/mm3 (0-0.3); Eosinophils Percent Auto 1.3 % (0-4.4); Hematocrit 24.5 % (42.0-52.0); Hemoglobin 8.1 g/dL (14.0-18.0); Immature Granulocyte Absolute 0.05 K/mm3 (0.00-0.031); Immature Granulocyte Percent A 0.5 % (0-0.5); Lymphocytes Absolute Auto 1.46 K/mm3 (0.9-3.2); Lymphocytes Percent Auto 15.5 % (18.3-44.2); Mean Corpuscular HGB Conc 33.1 g/dl (32-36); Mean Corpuscular Hemoglobin 31.3 pg (26-34); Mean Corpuscular Volume 94.6 fl (80-100); Mean Platelet Volume 9.2 fl (7.4-10.4); Monocytes Percent Auto 10.1 % (2.6-8.5); Neutrophils Absolute Auto 6.8 K/mm3 (1.3-6.7); Neutrophils Percent Auto 72.4 % (45.5-73.1); Platelet Count Result 280 k/mm3 (150-375); Red Blood Count 2.59 M/mm3 (4.6-6.20); Red Cell Distribution Width 14.2 % (11.5-14.5); White Blood Count 9.4 K/mm3 (4.5-10.0)
[2023-04-13 04:32] LABS: Alanine Aminotransferase 19 U/L (6-50); Albumin Level 2.9 g/dL (3.5-5.1); Alkaline Phosphatase 79 U/L (38-126); Anion Gap 8 mmol/L (8-16); Aspartate Amino Transferase 28 U/L (17-59); Bilirubin,Total 0.6 mg/dL (0.2-1.3); Blood Urea Nitrogen 12 mg/dL (9-20); Calcium 7.7 mg/dL (8.4-10.2); Carbon Dioxide 24 mmol/L (22-30); Chloride 106 mmol/L (98-107); Estimated CRCL calculation 43 ml/min; Estimated Glomerular Filt Rate > 60; Glucose 111 mg/dL (65-110); Potassium 3.9 mmol/L (3.4-5.0); Sodium 138 mmol/L (137-145)
[2023-04-13] MEDS: PANTOPRAZOLE SODIUM IV 40 MG VIAL IV PUSH ×2 (09:57→21:08)
--- NOTE | 2023-04-13 10:09 | WPDGIPROGNO ---
Progress Note: A&P Assessment and Plan (1) Esophageal ulcer with bleeding: Code(s): K22.11 - Ulcer of esophagus with bleeding Status: Acute Assessment and Plan: Esophageal ulcer was found to be source of upper GI blood loss. This is somewhat suspicious for a possible malignancy. Histology pending. CT scan confirms lesion in the esophagus no obvious metastatic disease. Will continue pantoprazole and advance to oral medications when diet tolerated. If malignancy confirmed oncology consultation is advised. Workup in progress to see if surgical resection is feasible. 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 He had mild stricturing in the proximal esophagus which was dilated. Long-term PPI use advised. This is risk factor for cancer. This makes large ulceration very suspicious for underlying malignancy. (3) Hiatal hernia: Code(s): K44.9 - Diaphragmatic hernia without obstruction or gangrene Status: Acute Subjective Date/time seen: 04/13/23 10:09 Interval history: Patient alert comfortable this morning. No significant he has additional bleeding noted. Abdominal pain appears to have improved. Currently tolerating liquid diet without difficulty. Review of Systems Review of Systems: Review of systems noncontributory. Exam Narrative: Physical exam reveals patient be alert comfortable at rest. Vital signs stable. HEENT exam unremarkable. Patient anicteric. Lungs are clear. Heart without murmur. Abdomen bowel sounds present soft nontender with no obvious organomegaly. Objective Data Vital Signs Vital Signs: Vital Signs - 24 hr 04/12/23 13:31 04/12/23 15:02 04/12/23 15:13 Temperature 98.4 F Pulse Rate 82 80 80 Respiratory Rate 16 26 H 24 H Blood Pressure 173/90 H 156/88 H 156/88 H Pulse Oximetry 97 96 96 Oxygen Delivery 04/12/23 15:21 04/12/23 15:40 04/12/23 16:18 Temperature 98.7 F 97.6 F Pulse Rate 80 76 76 Respiratory Rate 24 H 20 26 H Blood Pressure 154/78 H 165/70 H 92/47 L Pulse Oximetry 95 97 100 Oxygen Delivery Room Air Room Air 04/12/23 16:28 04/12/23 16:38 04/12/23 16:58 Temperature 98.5 F Pulse Rate 75 67 75 Respiratory Rate 27 H 23 H 12 Blood Pressure 90/50 L 118/60 156/80 H Pulse Oximetry 98 96 99 Oxygen Delivery Room Air Room Air 04/12/23 18:00 04/12/23 16:45 04/12/23 20:00 Temperature 98.6 F 97 F L Pulse Rate 77 82 77 Respiratory Rate 20 20 Blood Pressure 158/72 H 155/74 H Pulse Oximetry 99 96 Oxygen Delivery 04/12/23 20:00 04/12/23 20:00 04/12/23 22:00 Temperature Pulse Rate 77 76 82 Respiratory Rate 20 Blood Pressure Pulse Oximetry 96 Oxygen Delivery Room Air 04/12/23 23:42 04/12/23 23:53 04/13/23 00:00 Temperature 97 F L Pulse Rate 85 85 82 Respiratory Rate 16 16 Blood Pressure 136/65 Pulse Oximetry 96 96 Oxygen Delivery Room Air 04/13/23 00:52 04/13/23 02:00 04/13/23 04:00 Temperature 97.4 F L Pulse Rate 81 75 76 Respiratory Rate 16 Blood Pressure 109/57 L Pulse Oximetry 97 Oxygen Delivery 04/13/23 04:00 04/13/23 04:00 04/13/23 05:05 Temperature Pulse Rate 76 72 78 Respiratory Rate 16 Blood Pressure Pulse Oximetry 97 Oxygen Delivery Room Air 04/13/23 07:59 Temperature 96.9 F L Pulse Rate 76 Respiratory Rate 14 Blood Pressure 129/57 L Pulse Oximetry 98 Oxygen Delivery Intake/Output Intake/Output: Intake & Output 04/10/23 04/11/23 04/12/23 04/13/23 23:59 23:59 23:59 23:59 Intake Total 500 420 Output Total 460 480 Balance 40 -60 Meds/Results Medications: Active Medications Generic Name Dose Route Start Last Admin Trade Name Freq PRN Reason Stop Dose Admin Acetaminophen 650 mg 04/12/23 22:58 Acetaminophen 3
--- NOTE | 2023-04-13 11:30 | PM.IMPN ---
Progress Note: A&P Assessment and Plan (1) Esophageal ulcer with bleeding: Code(s): K22.11 - Ulcer of esophagus with bleeding Status: Acute Assessment and Plan: Pollock's esophagitis noted on EGD with large ulcer with stigmata of recent bleeding. Biopsies obtained. Stricture dilated. Patient treated with pantoprazole and 1 unit PRBC transfused. 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 Chronic anemia reported but unknown prior values. Esophageal ulcer with bleeding noted on EGD. Repeat hemoglobin 8.7 after transfusion. Monitor (3) Hypertension: Code(s): I10 - Essential (primary) hypertension Status: Acute Assessment and Plan: hypertension noted without extreme measurements, continue Coreg (4) Esophageal stricture: Code(s): K22.2 - Esophageal obstruction Status: Acute Assessment and Plan: esophageal stricture noted during EGD and was subsequently dilated. Plan diet: Clear liquid advanced diet as tolerated VT prophylaxis: SCDs GI prophylaxis: Pantoprazole 40 mg IV twice daily code status: Full code Subjective Date/time seen: 04/13/23 11:30 Interval history: 82-year-old male patient with past history of hypertension, GERD and anemia who was admitted for significant anemia with Hemoccult-positive stool and imaging findings esophagitis found to have Pollock's esophagus and currently being worked up for possible malignancy. No overnight events noted. No chest pain or shortness of breath. No nausea, vomiting or diarrhea. No fevers or chills. Review of Systems Review of Systems: 12 point review of systems was assessed and was negative except as noted in the HPI Exam Narrative: General: No acute distress, alert and oriented per baseline HEENT: Atraumatic, normocephalic, mucous membranes moist CV: Regular rate and rhythm, S1, S2 Lungs: Clear to auscultation bilaterally, no rales or crackles noted, no wheezes, good air entry Abdomen: Soft, nontender, nondistended Extremities: Normal to inspection Skin: No rashes noted, no lesions or wounds seen Psych: Euthymic, normal affect Objective Data Vital Signs Vital Signs: Vital Signs - 24 hr 04/12/23 13:31 04/12/23 15:02 04/12/23 15:13 Temperature 98.4 F Pulse Rate 82 80 80 Respiratory Rate 16 26 H 24 H Blood Pressure 173/90 H 156/88 H 156/88 H Pulse Oximetry 97 96 96 Oxygen Delivery 04/12/23 15:21 04/12/23 15:40 04/12/23 16:18 Temperature 98.7 F 97.6 F Pulse Rate 80 76 76 Respiratory Rate 24 H 20 26 H Blood Pressure 154/78 H 165/70 H 92/47 L Pulse Oximetry 95 97 100 Oxygen Delivery Room Air Room Air 04/12/23 16:28 04/12/23 16:38 04/12/23 16:58 Temperature 98.5 F Pulse Rate 75 67 75 Respiratory Rate 27 H 23 H 12 Blood Pressure 90/50 L 118/60 156/80 H Pulse Oximetry 98 96 99 Oxygen Delivery Room Air Room Air 04/12/23 18:00 04/12/23 16:45 04/12/23 20:00 Temperature 98.6 F 97 F L Pulse Rate 77 82 77 Respiratory Rate 20 20 Blood Pressure 158/72 H 155/74 H Pulse Oximetry 99 96 Oxygen Delivery 04/12/23 20:00 04/12/23 20:00 04/12/23 22:00 Temperature Pulse Rate 77 76 82 Respiratory Rate 20 Blood Pressure Pulse Oximetry 96 Oxygen Delivery Room Air 04/12/23 23:42 04/12/23 23:53 04/13/23 00:00 Temperature 97 F L Pulse Rate 85 85 82 Respiratory Rate 16 16 Blood Pressure 136/65 Pulse Oximetry 96 96 Oxygen Delivery Room Air 04/13/23 00:52 04/13/23 02:00 04/13/23 04:00 Temperature 97.4 F L Pulse Rate 81 75 76 Respiratory Rate 16 Blood Pressure 109/57 L Pulse Oximetry 97 Oxygen Delivery 04/13/23 04:00 04/13/23 04:00 04/13/23 05:05 Temperature Pulse Rate 76 72 78 Respiratory Rate 16 Blood Pressure Pulse Oximetry 97 Oxy
[2023-04-13] MEDS: LACTATED RINGERS 1,000 ML 50 ML IV CONT (18:17)
--- NOTE | 2023-04-13 18:18 | PC.NURSE ---
This patient, Bunny Willis, was transferred to [facility] on 04/13/23 at 1818. Personal belongings sent with patient. Report given to Savanah PIRES. Appropriate documentation sent with patient.
--- NOTE | 2023-04-13 18:38 | PC.NURSE ---
This patient, Bunny Willis, was received from [facility] on 04/13/23 at 1830. Patient/family oriented to unit policies and routines
[2023-04-14] VITALS (11 sets, daily range): BP systolic 138–150; BP diastolic 59–69; PULSE 68–88; RESP 16–20; TEMP 36.4–37; O2SAT 90–94
--- NOTE | 2023-04-14 08:28 | PM.IMPN ---
Progress Note: A&P Assessment and Plan (1) Esophageal ulcer with bleeding: Code(s): K22.11 - Ulcer of esophagus with bleeding Status: Acute Assessment and Plan: Pollock's esophagitis noted on EGD with large ulcer with stigmata of recent bleeding. Biopsies obtained. Stricture dilated. 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 Chronic anemia reported but unknown prior values. Esophageal ulcer with bleeding noted on EGD. Stable (3) Hypertension: Code(s): I10 - Essential (primary) hypertension Status: Acute Assessment and Plan: Hypertension noted without extreme measurements, continue Coreg Blood pressures reviewed 04/14 (4) Esophageal stricture: Code(s): K22.2 - Esophageal obstruction Status: Acute Assessment and Plan: Esophageal stricture noted during EGD 04/12 and was subsequently dilated Plan Diet: Clear liquid advanced diet as tolerated VT prophylaxis: SCDs GI prophylaxis: Pantoprazole 40 mg IV twice daily Code status: Full code Subjective Date/time seen: 04/14/23 08:28 Interval history: 82-year-old male patient with past history of hypertension, GERD and anemia who was admitted for significant anemia with Hemoccult-positive stool and imaging findings esophagitis found to have Pollock's esophagus and currently being worked up for possible malignancy. No overnight events noted. No chest pain or shortness of breath. No nausea, vomiting or diarrhea. No fevers or chills. Review of Systems Review of Systems: 12 point review of systems was assessed and was negative except as noted in the HPI Exam Narrative: General: No acute distress, alert and oriented per baseline HEENT: Atraumatic, normocephalic, mucous membranes moist CV: Regular rate and rhythm, S1, S2 Lungs: Clear to auscultation bilaterally, no rales or crackles noted, no wheezes, good air entry Abdomen: Soft, nontender, nondistended Extremities: Normal to inspection Skin: No rashes noted, no lesions or wounds seen Psych: Euthymic, normal affect Objective Data Vital Signs Vital Signs: Vital Signs - 24 hr 04/13/23 09:57 04/13/23 12:00 04/13/23 16:00 Temperature 98.6 F 98.2 F Pulse Rate 76 75 70 Respiratory Rate 16 16 Blood Pressure 123/59 L 133/62 Pulse Oximetry 96 95 Oxygen Delivery 04/13/23 12:00 04/13/23 16:00 04/13/23 18:30 Temperature Pulse Rate 72 69 Respiratory Rate Blood Pressure Pulse Oximetry Oxygen Delivery Room Air 04/13/23 18:45 04/13/23 19:39 04/13/23 21:04 Temperature 97.6 F 99 F Pulse Rate 78 79 90 Respiratory Rate 24 H 20 Blood Pressure 152/65 H 154/70 H Pulse Oximetry 93 91 Oxygen Delivery 04/13/23 20:00 04/13/23 23:15 04/13/23 23:38 Temperature 98.6 F Pulse Rate 75 73 Respiratory Rate 18 Blood Pressure 124/49 L Pulse Oximetry 92 94 Oxygen Delivery Room Air 04/14/23 00:00 04/14/23 04:00 04/14/23 04:00 Temperature 97.6 F Pulse Rate 73 69 71 Respiratory Rate 20 Blood Pressure 150/63 H Pulse Oximetry 93 Oxygen Delivery Intake/Output Intake/Output: Intake & Output 04/11/23 04/12/23 04/13/23 04/14/23 23:59 23:59 23:59 23:59 Intake Total 500 2450 50 Output Total 460 480 Balance 40 1970 50 Meds/Results Medications: Active Medications Generic Name Dose Route Start Last Admin Trade Name Freq PRN Reason Stop Dose Admin Acetaminophen 650 mg 04/12/23 22:58 Acetaminophen 325 Mg Tablet PO Q4H PRN Pain or Fever Carvedilol 25 mg 04/13/23 00:40 04/13/23 21:04 Carvedilol 25 Mg Tablet PO 25 mg Q12HR JUAN ANTONIO Administration Lactated Ringer's 1,000 mls @ 50 mls/hr 04/12
[2023-04-14] MEDS: carvediloL 25 MG TABLET PO ×2 (08:38→20:52)
[2023-04-14] MEDS: PANTOPRAZOLE SODIUM IV 40 MG VIAL IV PUSH (08:39)
[2023-04-14 09:24] LABS: Basophils Percent Auto 0.2 % (0.2-1.2); Eosinophils Absolute Auto 0.1 K/mm3 (0-0.3); Eosinophils Percent Auto 1.1 % (0-4.4); Hematocrit 25.4 % (42.0-52.0); Hemoglobin 8.2 g/dL (14.0-18.0); Immature Granulocyte Absolute 0.05 K/mm3 (0.00-0.031); Immature Granulocyte Percent A 0.5 % (0-0.5); Lymphocytes Absolute Auto 1.67 K/mm3 (0.9-3.2); Mean Corpuscular HGB Conc 32.3 g/dl (32-36); Mean Corpuscular Hemoglobin 30.5 pg (26-34); Mean Corpuscular Volume 94.4 fl (80-100); Mean Platelet Volume 9.4 fl (7.4-10.4); Monocytes Absolute Auto 0.9 K/mm3 (0.1-0.6); Monocytes Percent Auto 9.4 % (2.6-8.5); Neutrophils Percent Auto 71.8 % (45.5-73.1); Platelet Count Result 280 k/mm3 (150-375); Red Blood Count 2.69 M/mm3 (4.6-6.20); Red Cell Distribution Width 13.9 % (11.5-14.5); White Blood Count 9.8 K/mm3 (4.5-10.0)
[2023-04-14 09:41] LABS: Alanine Aminotransferase 19 U/L (6-50); Albumin Level 3.1 g/dL (3.5-5.1); Alkaline Phosphatase 85 U/L (38-126); Anion Gap 3 mmol/L (8-16); Aspartate Amino Transferase 29 U/L (17-59); Bilirubin,Total 0.4 mg/dL (0.2-1.3); Blood Urea Nitrogen 13 mg/dL (9-20); Calcium 7.8 mg/dL (8.4-10.2); Carbon Dioxide 30 mmol/L (22-30); Chloride 104 mmol/L (98-107); Estimated CRCL calculation 43 ml/min; Estimated Glomerular Filt Rate > 60; Glucose 119 mg/dL (65-110); Sodium 137 mmol/L (137-145)
--- NOTE | 2023-04-14 09:53 | WPDGIPROGNO ---
Progress Note: A&P Assessment and Plan (1) Esophageal ulcer with bleeding: Code(s): K22.11 - Ulcer of esophagus with bleeding Status: Acute Assessment and Plan: Large distal esophageal ulcer identified by endoscopy. Bleeding has stopped. Given the large size of the ulcer in underlying Pollock's esophagus there is significant concern for underlying malignancy. Histology is pending. If his pathology is positive he will need oncology opinion and workup to see if surgical resection is appropriate. If biopsy is negative follow-up EGD in 6-8 weeks is advised. Long-term use of PPI is suggested. Patient clinically stable to go home but may be easier to keep him in the hospital to await biopsies so that further workup can be outlined initially. 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 Subjective Date/time seen: 04/14/23 09:53 Interval history: Patient alert comfortable this morning. 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 Patient denies abdominal pain. Tolerating diet. Concerned about final histology of esophageal ulcer biopsy. No additional bleeding noted. Review of Systems Review of Systems: Review of systems noncontributory. Exam Narrative: Physical exam reveals patient to be alert. Vital signs stable. HEENT exam reveals no icterus. Lungs are clear. Heart is without murmur or extra sounds. Abdomen bowel sounds present soft nontender with no organomegaly. Objective Data Vital Signs Vital Signs: Vital Signs - 24 hr 04/13/23 09:57 04/13/23 12:00 04/13/23 16:00 Temperature 98.6 F 98.2 F Pulse Rate 76 75 70 Respiratory Rate 16 16 Blood Pressure 123/59 L 133/62 Pulse Oximetry 96 95 Oxygen Delivery 04/13/23 12:00 04/13/23 16:00 04/13/23 18:30 Temperature Pulse Rate 72 69 Respiratory Rate Blood Pressure Pulse Oximetry Oxygen Delivery Room Air 04/13/23 18:45 04/13/23 19:39 04/13/23 21:04 Temperature 97.6 F 99 F Pulse Rate 78 79 90 Respiratory Rate 24 H 20 Blood Pressure 152/65 H 154/70 H Pulse Oximetry 93 91 Oxygen Delivery 04/13/23 20:00 04/13/23 23:15 04/13/23 23:38 Temperature 98.6 F Pulse Rate 75 73 Respiratory Rate 18 Blood Pressure 124/49 L Pulse Oximetry 92 94 Oxygen Delivery Room Air 04/14/23 00:00 04/14/23 04:00 04/14/23 04:00 Temperature 97.6 F Pulse Rate 73 69 71 Respiratory Rate 20 Blood Pressure 150/63 H Pulse Oximetry 93 Oxygen Delivery 04/14/23 08:38 Temperature Pulse Rate 68 Respiratory Rate Blood Pressure Pulse Oximetry Oxygen Delivery Intake/Output Intake/Output: Intake & Output 04/11/23 04/12/23 04/13/23 04/14/23 23:59 23:59 23:59 23:59 Intake Total 500 2450 50 Output Total 460 480 Balance 40 1970 50 Meds/Results Medications: Active Medications Generic Name Dose Route Start Last Admin Trade Name Freq PRN Reason Stop Dose Admin Acetaminophen 650 mg 04/12/23 22:58 Acetaminophen 325 Mg Tablet PO Q4H PRN Pain or Fever Carvedilol 25 mg 04/13/23 00:40 04/14/23 08:38 Carvedilol 25 Mg Tablet PO 25 mg Q12HR JUAN ANTONIO Administration Lactated Ringer's 1,000 mls @ 50 mls/hr 04/12/23 14:10 04/13/23 18:17 Lr - Lactated Ringers Iv IV CONT 50 mls/hr .Q20H JUAN ANTONIO Administration Ondansetron HCl 4 mg 04/12/23 14:02 Ondansetron Inj 4 Mg/2 Ml Vial IV PUSH Q4H PRN Nausea Pantoprazole Sodium 40 mg 04/12/23 21:00 04/14/23 08:39 Pantoprazole Sodium Iv 40 Mg Vial IV PUSH 40 mg Q12HR JUAN ANTONIO Administration Radiology Results: ITS Impressions Abdomen/Pelvis CT 04/12/23 12:54 IMPRESSION: 1. Moderate-sized sliding hiatal hernia. Circumferential wall thickening of the visualized distal esophagus may reflect esophagitis. Chest CT 04/12/23 21:57 IMPRESSION:
[2023-04-14] MEDS: LACTATED RINGERS 1,000 ML 50 ML IV CONT (13:52)
[2023-04-14] MEDS: PANTOPRAZOLE 40 MG TABLET PO (20:52)
[2023-04-15] VITALS (12 sets, daily range): BP systolic 131–165; BP diastolic 59–72; PULSE 66–75; RESP 14–18; TEMP 36.4–36.9; O2SAT 90–99
[2023-04-15 05:33] LABS: Basophils Percent Auto 0.5 % (0.2-1.2); Eosinophils Absolute Auto 0.2 K/mm3 (0-0.3); Eosinophils Percent Auto 2.9 % (0-4.4); Hematocrit 24.7 % (42.0-52.0); Hemoglobin 8.1 g/dL (14.0-18.0); Immature Granulocyte Absolute 0.03 K/mm3 (0.00-0.031); Immature Granulocyte Percent A 0.4 % (0-0.5); Lymphocytes Absolute Auto 1.61 K/mm3 (0.9-3.2); Lymphocytes Percent Auto 19.7 % (18.3-44.2); Mean Corpuscular HGB Conc 32.8 g/dl (32-36); Mean Corpuscular Hemoglobin 30.8 pg (26-34); Mean Corpuscular Volume 93.9 fl (80-100); Mean Platelet Volume 9.3 fl (7.4-10.4); Monocytes Percent Auto 12.1 % (2.6-8.5); Neutrophils Absolute Auto 5.3 K/mm3 (1.3-6.7); Neutrophils Percent Auto 64.4 % (45.5-73.1); Platelet Count Result 278 k/mm3 (150-375); Red Blood Count 2.63 M/mm3 (4.6-6.20); Red Cell Distribution Width 13.6 % (11.5-14.5); White Blood Count 8.2 K/mm3 (4.5-10.0)
[2023-04-15 05:42] LABS: Alanine Aminotransferase 18 U/L (6-50); Albumin Level 2.9 g/dL (3.5-5.1); Alkaline Phosphatase 83 U/L (38-126); Anion Gap 2 mmol/L (8-16); Aspartate Amino Transferase 29 U/L (17-59); Bilirubin,Total 0.4 mg/dL (0.2-1.3); Blood Urea Nitrogen 9 mg/dL (9-20); Calcium 7.5 mg/dL (8.4-10.2); Carbon Dioxide 29 mmol/L (22-30); Chloride 105 mmol/L (98-107); Estimated CRCL calculation 43 ml/min; Estimated Glomerular Filt Rate > 60; Glucose 108 mg/dL (65-110); Potassium 3.7 mmol/L (3.4-5.0); Sodium 136 mmol/L (137-145)
[2023-04-15] MEDS: PANTOPRAZOLE 40 MG TABLET PO ×2 (09:21→21:35)
[2023-04-15] MEDS: carvediloL 25 MG TABLET PO ×2 (09:22→21:35)
[2023-04-15] MEDS: LACTATED RINGERS 1,000 ML 50 ML IV CONT (09:28)
--- NOTE | 2023-04-15 15:46 | PC.NURSE ---
Physical assessment by Student Nurse Shanelel [facility] reviewed. Agree with same. Any procedures, care or medications that were given by student nurse were completed under direct supervision of this instructor or assigned staff nurse.
--- NOTE | 2023-04-15 16:06 | PM.IMPN ---
Progress Note: A&P Assessment and Plan (1) Esophageal ulcer with bleeding: Code(s): K22.11 - Ulcer of esophagus with bleeding Status: Acute Assessment and Plan: Pollock's esophagitis noted on EGD with large ulcer with stigmata of recent bleeding. Biopsies obtained. Stricture dilated. 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 Chronic anemia reported but unknown prior values. Esophageal ulcer with bleeding noted on EGD. Stable (4) Hypertension: Code(s): I10 - Essential (primary) hypertension Status: Acute Assessment and Plan: Hypertension noted without extreme measurements, continue Coreg Blood pressures reviewed 04/15 Plan VT prophylaxis: SCDs GI prophylaxis: Pantoprazole 40 mg IV twice daily Code status: Full code Subjective Date/time seen: 04/15/23 16:06 Interval history: 82-year-old male patient with past history of hypertension, GERD and anemia who was admitted for significant anemia with Hemoccult-positive stool and imaging findings esophagitis found to have Pollock's esophagus and currently being worked up for possible malignancy. No overnight events noted. No chest pain or shortness of breath. No nausea, vomiting or diarrhea. No fevers or chills. Review of Systems Review of Systems: 12 point review of systems was assessed and was negative except as noted in the HPI Exam Narrative: General: No acute distress, alert and oriented per baseline HEENT: Atraumatic, normocephalic, mucous membranes moist CV: Regular rate and rhythm, S1, S2 Lungs: Clear to auscultation bilaterally, no rales or crackles noted, no wheezes, good air entry Abdomen: Soft, nontender, nondistended Extremities: Normal to inspection Skin: No rashes noted, no lesions or wounds seen Psych: Euthymic, normal affect Objective Data Vital Signs Vital Signs: Vital Signs - 24 hr 04/14/23 16:30 04/14/23 20:52 04/14/23 20:00 Temperature 98.6 F 97.9 F Pulse Rate 80 80 78 Respiratory Rate 16 18 Blood Pressure 145/63 H 139/69 Pulse Oximetry 94 90 Oxygen Delivery 04/14/23 20:45 04/15/23 00:00 04/14/23 20:00 Temperature 97.8 F Pulse Rate 71 88 Respiratory Rate 18 Blood Pressure 131/63 Pulse Oximetry 94 Oxygen Delivery Room Air 04/15/23 04:00 04/15/23 07:48 04/15/23 08:36 Temperature 97.7 F 98.4 F Pulse Rate 71 66 Respiratory Rate 18 18 Blood Pressure 147/72 H 150/71 H Pulse Oximetry 93 91 94 Oxygen Delivery Room Air 04/15/23 08:17 04/15/23 09:20 04/15/23 09:22 Temperature 97.8 F Pulse Rate 71 68 68 Respiratory Rate 17 14 Blood Pressure 155/72 H 165/71 H Pulse Oximetry 90 99 Oxygen Delivery 04/15/23 09:22 04/15/23 12:59 04/15/23 12:30 Temperature 98.1 F 97.6 F Pulse Rate 67 68 Respiratory Rate 18 18 Blood Pressure 139/67 135/64 Pulse Oximetry 96 95 Oxygen Delivery Room Air 04/15/23 15:33 Temperature 98.0 F Pulse Rate 68 Respiratory Rate 18 Blood Pressure 133/59 L Pulse Oximetry 93 Oxygen Delivery Intake/Output Intake/Output: Intake & Output 04/12/23 04/13/23 04/14/23 04/15/23 23:59 23:59 23:59 23:59 Intake Total 500 2450 1170 1480 Output Total 460 480 Balance 40 1970 1170 1480 Meds/Results Medications: Active Medications Generic Name Dose Route Start Last Admin Trade Name Freq PRN Reason Stop Dose Admin Acetaminophen 650 mg 04/12/23 22:58 Acetaminophen 325
[2023-04-16] VITALS: BP 136/61; PULSE 68; RESP 18; TEMP 36.5; O2SAT 92
[2023-04-16 04:00] VITALS: BP 164/74; PULSE 70; RESP 18; TEMP 36.8; O2SAT 99
[2023-04-16] MEDS: LACTATED RINGERS 1,000 ML 50 ML IV CONT (05:23)
[2023-04-16 06:00] LABS: Basophils Percent Auto 0.5 % (0.2-1.2); Eosinophils Absolute Auto 0.3 K/mm3 (0-0.3); Eosinophils Percent Auto 3.5 % (0-4.4); Hematocrit 24.9 % (42.0-52.0); Immature Granulocyte Absolute 0.04 K/mm3 (0.00-0.031); Immature Granulocyte Percent A 0.5 % (0-0.5); Lymphocytes Absolute Auto 1.72 K/mm3 (0.9-3.2); Lymphocytes Percent Auto 21.7 % (18.3-44.2); Mean Corpuscular HGB Conc 32.1 g/dl (32-36); Mean Corpuscular Hemoglobin 30.7 pg (26-34); Mean Corpuscular Volume 95.4 fl (80-100); Mean Platelet Volume 9.8 fl (7.4-10.4); Monocytes Absolute Auto 0.9 K/mm3 (0.1-0.6); Monocytes Percent Auto 11.2 % (2.6-8.5); Neutrophils Percent Auto 62.6 % (45.5-73.1); Platelet Count Result 285 k/mm3 (150-375); Red Blood Count 2.61 M/mm3 (4.6-6.20); Red Cell Distribution Width 13.7 % (11.5-14.5); White Blood Count 7.9 K/mm3 (4.5-10.0)
[2023-04-16 06:12] LABS: Alanine Aminotransferase 18 U/L (6-50); Albumin Level 2.9 g/dL (3.5-5.1); Alkaline Phosphatase 82 U/L (38-126); Anion Gap 5 mmol/L (8-16); Aspartate Amino Transferase 30 U/L (17-59); Bilirubin,Total 0.4 mg/dL (0.2-1.3); Blood Urea Nitrogen 9 mg/dL (9-20); Calcium 7.6 mg/dL (8.4-10.2); Carbon Dioxide 30 mmol/L (22-30); Chloride 103 mmol/L (98-107); Estimated CRCL calculation 48 ml/min; Estimated Glomerular Filt Rate > 60; Glucose 107 mg/dL (65-110); Sodium 138 mmol/L (137-145)
[2023-04-16 07:51] VITALS: BP 149/75; PULSE 65; RESP 17; TEMP 36.8; O2SAT 97
[2023-04-16 08:23] VITALS: PULSE 65
[2023-04-16] MEDS: PANTOPRAZOLE 40 MG TABLET PO (08:23)
[2023-04-16] MEDS: carvediloL 25 MG TABLET PO (08:23)
[2023-04-16 11:45] VITALS: BP 137/62; PULSE 66; RESP 17; TEMP 36.1; O2SAT 93
--- NOTE | 2023-04-16 13:15 | WPDGIPROGNO ---
Progress Note: A&P Assessment and Plan (1) Esophageal ulcer with bleeding: Code(s): K22.11 - Ulcer of esophagus with bleeding Status: Acute Assessment and Plan: Patient with large ulcer in the distal portion of the esophagus. Underlying Pollock's esophagus noted. Ulcer was the source of bleeding noted at time of admission. No additional bleeding no at this time. Plan to maintain patient on pantoprazole or similar PPI agent. I am somewhat suspicious this may be a cancer. Plan for discharge with follow-up in the office in 1 month. We will ask patient to call for results of biopsy when available. May take some time. If ulcer is benign in follow-up EGD in 6 weeks is advised. If ulcer malignant he will need referral to oncologist. Long-term use of PPI suppression anticipated. Anti-reflux measures. 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 Tolerating diet. Denies abdominal pain. No bleeding reported. Patient speaks Thai communicated with him with the assistance of his granddaughter and children. Patient anxious to go home. Review of Systems Review of Systems: Review of systems noncontributory. Exam Narrative: Physical exam reveals patient to be alert. Vital signs stable. HEENT exam is unremarkable. Patient is anicteric. Lungs are clear to auscultation and percussion. Heart is without murmur or extra sounds. Abdomen bowel sounds are present soft nontender with no hepatosplenomegaly. Objective Data Vital Signs Vital Signs: Vital Signs - 24 hr 04/15/23 15:33 04/15/23 19:30 04/15/23 21:35 Temperature 98.0 F 98.5 F Pulse Rate 68 75 75 Respiratory Rate 18 18 Blood Pressure 133/59 L 152/66 H Pulse Oximetry 93 98 Oxygen Delivery 04/16/23 00:00 04/15/23 21:30 04/16/23 04:00 Temperature 97.7 F 98.2 F Pulse Rate 68 70 Respiratory Rate 18 18 Blood Pressure 136/61 164/74 H Pulse Oximetry 92 99 Oxygen Delivery Room Air 04/16/23 07:51 04/16/23 08:23 04/16/23 08:23 Temperature 98.2 F Pulse Rate 65 65 Respiratory Rate 17 Blood Pressure 149/75 H Pulse Oximetry 97 Oxygen Delivery Room Air 04/16/23 11:45 Temperature 97.0 F L Pulse Rate 66 Respiratory Rate 17 Blood Pressure 137/62 Pulse Oximetry 93 Oxygen Delivery Intake/Output Intake/Output: Intake & Output 04/13/23 04/14/23 04/15/23 04/16/23 23:59 23:59 23:59 23:59 Intake Total 2450 1170 2270 1240 Output Total 480 Balance 1970 1170 2270 1240 Meds/Results Medications: Active Medications Generic Name Dose Route Start Last Admin Trade Name Freq PRN Reason Stop Dose Admin Acetaminophen 650 mg 04/12/23 22:58 Acetaminophen 325 Mg Tablet PO Q4H PRN Pain or Fever Carvedilol 25 mg 04/13/23 00:40 04/16/23 08:23 Carvedilol 25 Mg Tablet PO 25 mg Q12HR JUAN ANTONIO Administration Lactated Ringer's 1,000 mls @ 50 mls/hr 04/12/23 14:10 04/16/23 05:23 Lr - Lactated Ringers Iv IV CONT 50 mls/hr .Q20H JUAN ANTONIO Administration Pantoprazole Sodium 40 mg 04/14/23 21:00 04/16/23 08:23 Pantoprazole 40 Mg Tablet PO 40 mg Q12HR JUAN ANTONIO Administration Radiology Results: ITS Impressions Abdomen/Pelvis CT 04/12/23 12:54 IMPRESSION: 1. Moderate-sized sliding hiatal hernia. Circumferential wall thickening of the visualized distal esophagus may reflect esophagitis. Chest CT 04/12/23 21:57 IMPRESSION: 1. Prominent wall thickening at the distal esophagus with some surrounding periesophageal stranding consistent with reported history of
--- NOTE | 2023-04-16 14:11 | PM.DS ---
DS: Admitting Diagnosis Discharge Date 04/16/23 Admitting Diagnosis Anemia and shortness of breath DS: Discharge Diagnosis Discharge Diagnosis (1) Esophageal ulcer with bleeding: Code(s): K22.11 - Ulcer of esophagus with bleeding Status: Acute Assessment and Plan: Pollock's esophagitis noted on EGD with large ulcer with stigmata of recent bleeding. Biopsies obtained. Stricture dilated. 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 Chronic anemia reported but unknown prior values. Esophageal ulcer with bleeding noted on EGD. Stable (4) Hypertension: Code(s): I10 - Essential (primary) hypertension Status: Acute Assessment and Plan: Hypertension noted without extreme measurements, continue Coreg Blood pressures reviewed 04/15 Plan VT prophylaxis: SCDs GI prophylaxis: Pantoprazole 40 mg IV twice daily Code status: Full code DS: Summary Hospital Course Hospital Course: 82-year-old male patient with past history of hypertension, GERD and anemia who was admitted for significant anemia with Hemoccult-positive stool and imaging findings esophagitis found to have Pollock's esophagus and currently being worked up for possible malignancy. Pollock's esophagitis noted on EGD with large ulcer with stigmata of recent bleeding.? Biopsies obtained.? Stricture dilated.? Patient treated with pantoprazole and 1 unit PRBC transfused 04/14: Hgb stable at 8.2 04/15: stable Esophageal stricture noted during EGD 04/12 and was subsequently dilated Concern for underlying malignancy, awaiting biopsies Patient with large ulcer in the distal portion of the esophagus.? Underlying Pollock's esophagus noted.? Ulcer was the source of bleeding noted at time of admission.? No additional bleeding no at this time.? Plan to maintain patient on pantoprazole or similar? PPI agent.? I am somewhat suspicious this may be a cancer.? Plan for discharge with follow-up in the office in 1 month.? We will ask patient to call for results of biopsy when available.? May take some time.? If ulcer is benign in follow-up EGD in 6 weeks is advised.? If ulcer malignant he will need referral to oncologist.? Long-term use of PPI suppression anticipated.? Anti-reflux measures. Please see above and med rec for details. Patient was discharged in stable condition with close outpatient follow-up for biopsy results. Time Spent with Patient Time attestation: Total time spent providing and/or coordinating discharge services: Exam Narrative: General: No acute distress, alert and oriented per baseline HEENT: Atraumatic, normocephalic, mucous membranes moist CV: Regular rate and rhythm, S1, S2 Lungs: Clear to auscultation bilaterally, no rales or crackles noted, no wheezes, good air entry Abdomen: Soft, nontender, nondistended Extremities: Normal to inspection Skin: No rashes noted, no lesions or wounds seen Psych: Euthymic, normal affect DS: Data Data Completed and Pending Pending studies at discharge: Pending at discharge 04/12/23 16:18 Surgical [PTH] Routine Labs on day of discharge: Labs from last 24 hours 04/16/23 04:59 WBC 7.9 RBC 2.61 L Hgb 8.0 L Hct 24.9 L MCV 95.4 MCH 30.7 MCHC 32.1 RDW 13.7 Plt Count 285 MPV 9.8 Immature Gran % (Auto) 0.5 Neut % (Auto) 62.6 Lymph % (Auto) 21.7 [place] % (Auto) 11.2 H Eos % (Auto) 3.5 Baso % (Auto) 0.5 Lymph # (Auto) 1.72 [place] # (Auto)
== END 2023-04-16 14:40 | disposition home or self-care (01) ==
LOC: ANHED 11:01 → ANHIMU 15:32 → ANH2MED 04-14 10:19 → ANHIMU 04-17 11:52
PROVIDERS: General Practice; Internal Medicine Gastroenterology; Nurse Practitioner; Admitting Provider Internal Medicine; Emergency Provider Nurse Practitioner Family; PCP Physician Assistant; Visit Provider Student in an Organized Health Care Education/Training Program
PROC: 0DJ08ZZ Inspection of Upper Intestinal Tract, Via Natural or Artificial Opening Endoscopic (ICD-10-PCS; CPT 43235; principal; 2023-04-12 15:45)
DX: K22.710 Barrett's esophagus with low grade dysplasia (principal); K44.9 Diaphragmatic hernia without obstruction or gangrene; K22.2 Esophageal obstruction; K92.1 Melena; D50.0 Iron deficiency anemia secondary to blood loss (chronic); R94.31 Abnormal electrocardiogram [ECG] [EKG]; D64.9 Anemia, unspecified; K21.9 Gastro-esophageal reflux disease without esophagitis; I10 Essential (primary) hypertension; Z79.899 Other long term (current) drug therapy
CPT/HCPCS: 43239; 43450; 36415; 36430; 71260; 74177; 80053; 81003; 83690; 84484; 85025; 85027; 85610; 86850; 86900; 86901; 86923; 88305; 88313; 93005; 96361; 96374; 96375; 99285; A9270; C9113; G0378; G0379; J2405; J2704; J7050; J7120; P9016; Q9967

== ENCOUNTER 2023-05-27 03:05 | Day surgery (SDC) | payer MEDICAID, SELFPAY ==
[2023-05-21 14:00] VITALS: BMI 22.7
[2023-05-27] MEDS: LACTATED RINGERS 1,000 ML 150 ML IV CONT (10:38)
[2023-05-27 10:41] VITALS: BP 177/87; PULSE 63; RESP 18; TEMP 36.1; O2SAT 99
--- NOTE | 2023-05-27 10:43 | SUR.PREOP ---
[employer] interpreter translator was used for preop registration. Session number [id number]. All questions were answered. Patient was given a consent to read in [place] and confirmed all questions were answered. Daughters in the room with patient to help answer questions.
--- NOTE | 2023-05-27 11:01 | PM.HPGS ---
History of Present Illness History of Present Illness Consent: Risks, benefits, and alternatives have been discussed and questions answered. Patient agrees to proceed with procedure. Chief complaint: Ulcer of esophagus,Pollock's esophagus Narrative: Bunny Willis is a 83 year old male Presents for follow-up EGD. Patient hospitalized in April. He was found to have a very large esophageal ulcer and underlying Pollock's esophagus. Histology revealed low-grade dysplasia but no evidence for malignancy. Patient has been maintained on pantoprazole 40mg p.o. b.i.d.. He denies any heartburn or dysphagia. He returns today to document healing of this lesion. Family history is noncontributory. Review of Systems Review of Systems: Review of systems noncontributory. [facility] Past Medical History Medical History Anemia Barretts esophagus GERD (gastroesophageal reflux disease) Hypertension Social History Social History Smoking status: Never smoker Alcohol intake: former Substance use: never Substance use type: does not use Lack of Transportation: No Lack of Food: Never True Current Housing: I Have Housing Concerned About Future Housing: No Difficulty Paying Gas/Electric Bills: No Difficulty Paying for Meds: No Currently Unemployed: No Education: Grade School Difficulty w/ Childcare or Family Care: No Living arrangements: with family Additional living arrangements comments: lives with children Spiritual care concerns: No Meds Home Medications and Allergies Home Medications Medication Instructions Recorded Confirmed Type carvedilol 25 mg tablet 25 mg PO Q12H #180 tabs 09/27/22 05/27/23 Rx pantoprazole 40 mg tablet,delayed 40 mg PO Q12HR 1 month #60 tabs 04/16/23 05/21/23 Rx release ferrous gluconate 324 mg (38 mg 324 mg PO DAILY 05/10/23 05/21/23 History iron) tablet losartan 50 mg tablet 50 mg PO DAILY 05/10/23 05/21/23 History Allergies Allergy/AdvReac Type Severity Reaction Status Date / Time No Known Allergies Allergy Verified 05/27/23 10:24 Vital Signs Vital Signs - 24 hr 05/27/23 10:41 Temperature 96.9 F L Pulse Rate 63 Respiratory Rate 18 Blood Pressure 177/87 H Pulse Oximetry 99 Oxygen Delivery Room Air Exam Narrative: Physical exam reveals patient to be alert. Vital signs stable. HEENT exam is unremarkable. Patient is anicteric. Lungs are clear to auscultation and percussion. Heart is without murmur or extra sounds. Abdomen bowel sounds are present nontender with no hepatosplenomegaly. Assessment and Plan Assessment and plan (1) Esophageal ulcer: Code(s): K22.10 - Ulcer of esophagus without bleeding Status: Acute Assessment and Plan: Patient was found to have a large esophageal ulcer with underlying Pollock's esophagus. Benign histology however low-grade dysplasia noted. Patient now maintained on pantoprazole 40mg p.o. b.i.d.. He reports symptoms have improved. Plan for EGD to assess more thoroughly in follow-up to document healing at this time. 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
--- NOTE | 2023-05-27 11:47 | SUR.PREOP ---
Dr Velasquez used cultural centre manager service ID #[id number] for pre op consultation.
[2023-05-27 11:48] VITALS: BP 105/70; PULSE 60; RESP 25; O2SAT 99
[2023-05-27 11:58] VITALS: BP 112/65; PULSE 56; RESP 21; O2SAT 99
[2023-05-27 12:08] VITALS: BP 120/70; PULSE 53; RESP 18; O2SAT 99
--- NOTE | 2023-05-27 12:10 | SUR.PHASEII ---
[employer] interpreter service used. Spoke with Marcelina #[id number]. Family verbalized understanding. No questions or concerns voiced.
== END 2023-05-27 12:25 | disposition home or self-care (01) ==
PROVIDERS: PCP Physician Assistant; Visit Provider Internal Medicine Gastroenterology
PROC: 0DJ08ZZ Inspection of Upper Intestinal Tract, Via Natural or Artificial Opening Endoscopic (ICD-10-PCS; CPT 43235; principal; 2023-05-27 11:30)
DX: K22.70 Barrett's esophagus without dysplasia (principal); K44.9 Diaphragmatic hernia without obstruction or gangrene; K21.9 Gastro-esophageal reflux disease without esophagitis; D64.9 Anemia, unspecified; I10 Essential (primary) hypertension
CPT/HCPCS: 43239; 88305; J2704; J7120

== ENCOUNTER 2024-10-07 01:12 | Day surgery (SDC) | payer OTHER, SELFPAY ==
[2024-09-28 12:40] VITALS: BMI 24.8
[2024-10-07 11:03] VITALS: BP 174/84; PULSE 63; RESP 18; TEMP 36.1; O2SAT 97
[2024-10-07] MEDS: LACTATED RINGERS 1,000 ML 150 ML IV CONT (11:06)
--- NOTE | 2024-10-07 11:12 | WPDANESEPPF ---
Anes - Initial Pre Proc Eval Procedure: Operation Date: 10/07/24 11:15 Proposed Procedures p Esophagogastroduodenoscopy EGD - Dandre Alcazar MD Date/Time: 10/07/24 11:12 Surgeon: Dandre Alcazar MD Pre Op Diagnosis: ulcer of esophagus, diaphragmatic hernia, Patient Data Age: 85 Gender: M Height: 1.6 m Weight: 58.9 kg Last Vital Signs Temp 36.1 C L 10/07/24 11:03 Pulse 63 10/07/24 11:03 Resp 18 10/07/24 11:03 BP 174/84 H 10/07/24 11:03 Pulse Ox 97 10/07/24 11:03 O2 Del Method Room Air 10/07/24 11:03 Allergies Allergy/AdvReac Type Severity Reaction Status Date / Time No Known Allergies Allergy Verified 10/07/24 11:01 Home Medications ?Medication ?Instructions ?Recorded ?Confirmed ?Type ferrous gluconate 324 mg (38 mg 324 mg PO DAILY 05/10/23 10/07/24 History iron) tablet losartan 50 mg tablet 50 mg PO DAILY 05/10/23 10/07/24 History carvedilol 25 mg tablet See Rx Instructions .Route 03/04/24 10/07/24 Rx .COMPLEX #180 tabs pantoprazole 40 mg tablet,delayed 40 mg PO Q12HR 1 month #60 tabs 04/27/24 10/07/24 Rx release Patient hx anesthesia problems: none Family hx anesthesia problems: none Results Review: All pre-operative results and documents have been reviewed as part of the pre-operative evaluation. [facility] Past Medical History Medical History Barretts esophagus Hypertension Anemia GERD (gastroesophageal reflux disease) Social History Social History Smoking status: Never smoker Alcohol intake: former Substance use: never Substance use type: does not use Do You Feel Safe in your Home?: Yes Lack of Transportation: No Lack of Food: Never True Current Housing: I Have Housing Concerned About Future Housing: No Difficulty Paying Gas/Electric Bills: No Difficulty Paying for Meds: No Currently Unemployed: No Education: Grade School Difficulty w/ Childcare or Family Care: No Living arrangements: with family Additional living arrangements comments: lives with children Spiritual care concerns: No Anes - Eval Final PreProcedure Day of Procedure 10/07/24 11:12 Patient weight: normal Heart: regular rate and rhythm Lungs: clear to auscultation Airway: Mallampati scale class II Neurological: alert and oriented Last oral intake: >/= 8 hours ASA classification: III Emergent: no Anesthetic plan: proceed Anesthesia type and monitoring: general GIVS and standard monitoring Results Review: All pre-operative results and documents have been reviewed as part of the pre-operative evaluation. Informed Consent: The patient's anesthetic plan and its attendant risks and benefits were discussed with the patient/family/POA. Questions were solicited and answers provided to the satisfaction of the patient/family/POA.
--- NOTE | 2024-10-07 11:57 | PM.IMHP ---
H&P: HPI History of Present Illness Date/Time: 10/07/24 11:57 Chief Complaint: Pollock's esophagus Narrative: the patient has a long segment of Pollock's esophagus, 10 cm. his last EGD was 3 years ago, finding small benign ulcers within the Pollock's epithelium and biopsies showing possible low-grade dysplasia. He is here for follow-up. Denies dysphagia or heartburn. Review of Systems Review of Systems: All systems reviewed & are unremarkable except as noted in HPI and below PMFSH Past Medical History Medical History (Updated 10/07/24 @ 11:59 by Dandre Alcazar MD) Hypertension Anemia GERD (gastroesophageal reflux disease) Social History Social History Smoking status: Never smoker Alcohol intake: former Substance use: never Substance use type: does not use Do You Feel Safe in your Home?: Yes Lack of Transportation: No Lack of Food: Never True Current Housing: I Have Housing Concerned About Future Housing: No Difficulty Paying Gas/Electric Bills: No Difficulty Paying for Meds: No Currently Unemployed: No Education: Grade School Difficulty w/ Childcare or Family Care: No Living arrangements: with family Additional living arrangements comments: lives with children Spiritual care concerns: No Meds Home Medications and Allergies Home Medications ?Medication ?Instructions ?Recorded ?Confirmed ?Type ferrous gluconate 324 mg (38 mg 324 mg PO DAILY 05/10/23 10/07/24 History iron) tablet losartan 50 mg tablet 50 mg PO DAILY 05/10/23 10/07/24 History carvedilol 25 mg tablet See Rx Instructions .Route 03/04/24 10/07/24 Rx .COMPLEX #180 tabs pantoprazole 40 mg tablet,delayed 40 mg PO Q12HR 1 month #60 tabs 04/27/24 10/07/24 Rx release Allergies Allergy/AdvReac Type Severity Reaction Status Date / Time No Known Allergies Allergy Verified 10/07/24 11:01 Vital Signs Vital Signs - 24 hr 10/07/24 11:03 Temperature 97 F L Pulse Rate 63 Respiratory Rate 18 Blood Pressure 174/84 H Pulse Oximetry 97 Oxygen Delivery Room Air Exam Const: General: cooperative and healthy appearing Resp: Effort & Inspection: normal respiratory effort and able to speak in complete sentences Auscultation: clear to auscultation bilaterally Cardio: Rate: regular rate Rhythm: regular rhythm GI: Inspection: normal to inspection GI Palp: No No hepatosplenomegaly present Auscultation: normal bowel sounds Rectal Exam: deferred Skin: General skin exam: normal color Psych: Appearance: grossly normal Mental Status: mental status grossly normal Assessment and Plan Assessment and plan (1) Pollock's esophagus determined by biopsy: Code(s): K22.70 - 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 Consent signed. Will proceed.
[2024-10-07 12:35] VITALS: BP 90/58; PULSE 64; RESP 24; O2SAT 94
[2024-10-07 12:45] VITALS: BP 98/68; PULSE 60; RESP 20; O2SAT 94
[2024-10-07 12:55] VITALS: BP 128/79; PULSE 60; RESP 18; O2SAT 95
== END 2024-10-07 13:17 | disposition home or self-care (01) ==
PROVIDERS: PCP Physician Assistant; Referring Provider Nurse Practitioner Family; Visit Provider Internal Medicine Gastroenterology
PROC: 0DJ08ZZ Inspection of Upper Intestinal Tract, Via Natural or Artificial Opening Endoscopic (ICD-10-PCS; CPT 43239; principal; 2024-10-07 11:15)
DX: Z09 Encounter for follow-up examination after completed treatment for conditions other than malignant neoplasm (principal); K22.70 Barrett's esophagus without dysplasia; K29.50 Unspecified chronic gastritis without bleeding; K44.9 Diaphragmatic hernia without obstruction or gangrene; I10 Essential (primary) hypertension; D64.9 Anemia, unspecified; K21.9 Gastro-esophageal reflux disease without esophagitis; Z87.19 Personal history of other diseases of the digestive system
CPT/HCPCS: 43239; 88305; J2003; J2704; J7120

== ENCOUNTER 2025-04-07 00:31 | Day surgery (SDC) | payer OTHER, SELFPAY ==
[2025-03-25 14:41] VITALS: BMI 25.0
[2025-04-07 07:12] VITALS: BP 168/70; PULSE 61; RESP 16; TEMP 36.1; O2SAT 97; BMI 23.8
[2025-04-07] MEDS: LACTATED RINGERS 1,000 ML 150 ML IV CONT (07:34)
[2025-04-07] MEDS: SIMETHICONE ORAL SUSPENSION 20 MG/0.3 ML 30 ML BOTTLE 1.8 ML PO (07:35)
--- NOTE | 2025-04-07 07:52 | P.PNAN_ITS ---
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 Patient Data Age: 85 Gender: M Height: 1.6 m Weight: 61.2 kg Last Vital Signs Temp 36.1 C L 04/07/25 07:12 Pulse 61 04/07/25 07:12 Resp 16 04/07/25 07:12 BP 168/70 H 04/07/25 07:12 Pulse Ox 97 04/07/25 07:12 O2 Del Method Room Air 04/07/25 07:12 Allergies Allergy/AdvReac Type Severity Reaction Status Date / Time No Known Allergies Allergy Verified 04/07/25 07:22 Home Medications ?Medication ?Instructions ?Recorded ?Confirmed ?Type ferrous gluconate 324 mg (38 mg 324 mg PO DAILY 04/07/25 History iron) tablet losartan 50 mg tablet 50 mg PO DAILY 05/10/2310/27 History pantoprazole 40 mg tablet,delayed 40 mg PO Q12HR 1 mon #60 tabs 10/27/24 04/07/25 Rx release carvedilol 25 mg tablet See Rx Instructions .Route 0 12/02/24 04/07/25 Rx .COMPLEX #180 tabs Patient hx anesthesia problems: none Family hx anesthesia problems: none Results Review: All pre-operative results and documents have been reviewed as part of the pre- operative evaluation. [facility] Past Medical History Medical History (Updated 10/07/24 @ 11:59 by Dandre Alcazar MD) Hypertension Anemia GERD (gastroesophageal reflux disease) Social History Social History Smoking status: Never smoker Alcohol intake: former Substance use: never Substance use type: does not use Do You Feel Safe in your Home?: Yes Lack of Transportation: No Lack of Food: Never True Current Housing: I Have Housing Concerned About Future Housing: No Difficulty Paying Gas/Electric Bills: No Difficulty Paying for Meds: No Currently Unemployed: No Education: Grade School Difficulty w/ Childcare or Family Care: No Living arrangements: with family Additional living arrangements comments: lives with children Spiritual care concerns: No Anes - Eval Final PreProcedure Day of Procedure 04/07/25 07:52 Patient weight: normal Heart: regular rate and rhythm Lungs: clear to auscultation and normal air movement Airway: Mallampati scale class II Neurological: alert and oriented Last oral intake: >/= 8 hours ASA classification: II Emergent: no Anesthetic plan: proceed Anesthesia type and monitoring: general GIVS and standard monitoring Results Review: All pre-operative results and documents have been reviewed as part of the pre- operative evaluation. Informed Consent: The patient's anesthetic plan and its attendant risks and benefits were discussed with the patient/family/POA. Questions were solicited and answers provided to the satisfaction of the patient/family/POA.
--- NOTE | 2025-04-07 08:11 | PM.IMHP ---
H&P: HPI History of Present Illness Date/Time: 04/07/25 08:11 Chief Complaint: GERD Narrative: the patient has a long segment Pollock's esophagus. He had an EGD in October this year with multiple biopsies which did not show dysplasia. He is here for follow-up EGD. Review of Systems Review of Systems: All systems reviewed & are unremarkable except as noted in HPI and below PMFSH Past Medical History Medical History (Updated 10/07/24 @ 11:59 by Dandre Alcazar MD) Hypertension Anemia GERD (gastroesophageal reflux disease) Social History Social History Smoking status: Never smoker Alcohol intake: former Substance use: never Substance use type: does not use Do You Feel Safe in your Home?: Yes Lack of Transportation: No Lack of Food: Never True Current Housing: I Have Housing Concerned About Future Housing: No Difficulty Paying Gas/Electric Bills: No Difficulty Paying for Meds: No Currently Unemployed: No Education: Grade School Difficulty w/ Childcare or Family Care: No Living arrangements: with family Additional living arrangements comments: lives with children Spiritual care concerns: No Meds Home Medications and Allergies Home Medications ?Medication ?Instructions ?Recorded ?Confirmed ?Type ferrous gluconate 324 mg (38 mg 324 mg PO DAILY 05/10/23 04/07/25 History iron) tablet losartan 50 mg tablet 50 mg PO DAILY 05/10/23 04/07/25 History pantoprazole 40 mg tablet,delayed 40 mg PO Q12HR 1 month #60 tabs 10/27/24 04/07/25 Rx release carvedilol 25 mg tablet See Rx Instructions .Route 12/02/24 04/07/25 Rx .COMPLEX #180 tabs Allergies Allergy/AdvReac Type Severity Reaction Status Date / Time No Known Allergies Allergy Verified 04/07/25 07:22 Vital Signs Vital Signs - 24 hr 04/07/25 07:12 Temperature 96.9 F L Pulse Rate 61 Respiratory Rate 16 Blood Pressure 168/70 H Pulse Oximetry 97 Oxygen Delivery Room Air Exam Const: General: cooperative and healthy appearing Resp: Effort & Inspection: normal respiratory effort and able to speak in complete sentences Auscultation: clear to auscultation bilaterally Cardio: Rate: regular rate Rhythm: regular rhythm GI: Inspection: normal to inspection GI Palp: No No hepatosplenomegaly present Auscultation: normal bowel sounds Rectal Exam: deferred Skin: General skin exam: normal color Psych: Appearance: grossly normal Mental Status: mental status grossly normal Assessment and Plan Assessment and plan (1) Pollock's esophagus determined by biopsy: Code(s): K22.70 - 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 Consent signed. Will proceed. If there is no dysplasia in biopsies that will be taken, given his advanced age, there is no indication for further surveillance.
--- NOTE | 2025-04-07 08:33 | S_PTH ---
PATIENT: Bunny Willis LOC: [facility] #:[id number] AGE/SX: 85/M ROOM: RE04/07/[address]: Dandre Alcazar MD : 09/19/1939 BED: DIS: 04/07/2025 SPEC #: [id number] RECD: 04/07/25 10:02 STATUS: AYSE REDawn #: [id number] JANES: 04/07/25 08:[address]: Dandre Alcazar DEPT: [facility] Surgical RECD BY: Earle Summers ENTERED: 04/07/25 10:02 SP TYPE: Surgical OTHR DR: Cheryl Mckee, PA Tissues: A - Esophageal Biopsy Procedures: Hematoxylin and Eosin Stain Gross and Microscopic Level 4
[2025-04-07 08:36] VITALS: BP 93/55; PULSE 62; RESP 20; O2SAT 99
[2025-04-07 08:46] VITALS: BP 98/61; PULSE 61; RESP 20; O2SAT 98
[2025-04-07 08:56] VITALS: BP 114/71; PULSE 57; RESP 18; O2SAT 98
== END 2025-04-07 09:13 | disposition home or self-care (01) ==
PROVIDERS: PCP Physician Assistant; Referring Provider Nurse Practitioner; Visit Provider Internal Medicine Gastroenterology
PROC: 0DJ08ZZ Inspection of Upper Intestinal Tract, Via Natural or Artificial Opening Endoscopic (ICD-10-PCS; CPT 43239; principal; 2025-04-07 08:30)
DX: K22.70 Barrett's esophagus without dysplasia (principal); K21.9 Gastro-esophageal reflux disease without esophagitis; K44.9 Diaphragmatic hernia without obstruction or gangrene
CPT/HCPCS: 43239; 88305; J7120